=== PATIENT | male | born 1970 | race Caucasian/White ===

== ENCOUNTER → 2018-09-21 | Outpatient (CLI) | payer OTHER ==
--- NOTE | 2018-09-21 17:31 | REP ---
Right lower extremity Duplex Doppler venous ultrasound: Real time compression and duplex Doppler interrogation of the right lower extremity deep venous system is performed. The right common femoral, superficial femoral and popliteal veins are fully compressible with transducer pressure and demonstrate normal spontaneous and phasic flow, without evidence of deep venous thrombosis. Impression: No evidence of deep venous thrombosis of the right lower extremity femoral popliteal venous system. Electronically Signed by Nasir Yousif MD 09/21/2018 05:21 P
== END ==
LOC: M RAD 16:44
PROVIDERS: ATTEND Physician Assistant
DX: M79.671 Pain in right foot (principal); Z98.890 Other specified postprocedural states